=== PATIENT | female | born 1965 | race Caucasian/White ===

== ENCOUNTER 2024-07-04 08:24 | Outpatient (CLI) | payer MEDICARE, OTHER, SELFPAY | END 2024-07-04 08:25 | disposition home or self-care (01) | LOC: INJ CL 08:33 | PROVIDERS: PCP Internal Medicine; Visit Provider Family Medicine | DX: M54.16 Radiculopathy, lumbar region (principal); M51.369 Other intervertebral disc degeneration, lumbar region without mention of lumbar back pain or lower extremity pain | CPT/HCPCS: 64483; 64484; J1100; J2250; J3010; Q9966 ==